=== PATIENT | female | born 1960 | race Hispanic/Latino ===

== ENCOUNTER → 2019-02-06 | Outpatient (CLI) | payer BC ==
[~2019-02-06] MED LIST: IOPAMIDOL 370 MG/ML 200 ML INFUS..BTL INJ ONE; LOTRIL; SODIUM CHLORIDE 0.9% 100 ML 100 ML ONE; [UNRECOGNIZED DRUG - OTHER]
[2019-02-06 17:38] LABS: BLOOD UREA NITROGEN 18 mg/dL (7-26); BUN/CREATININE RATIO 20 (6-25); CREATININE, SERUM 0.88 mg/dL (0.57-1.11); EST GLOMERULAR FILTRATION RATE > 60 ML/MIN (60-)
--- NOTE | 2019-02-06 18:49 | Diagnostic Imaging Report ---
History:Cerebral aneurysm, Comparison studies:None Technique: Axial images were obtained from the skull base to the vertex. 3-D reconstructions and maximum intensity projection reformats were performed. Coronal and sagittal images reconstructed from the axial data. Intravenous contrast: 100 cc of Omnipaque 300. Dose modulation, iterative reconstruction, and/or weight based adjustment of the mA/kV was utilized to reduce the radiation dose to as low as reasonably achievable. Findings: Right internal carotid artery: Patent. No abnormalities. Left internal carotid artery: Patent. No abnormalities. Right vertebral artery: Patent. No abnormalities. Left vertebral artery: Patent. No abnormalities. Basilar artery: Patent. No abnormalities. Posterior cerebral arteries: Patent. No abnormalities. origin of the bilateral bioinformaticist. Anatomical variants: Acom: Patent . Pcoms: Patent. Vertebral arteries: Dominant left . IMPRESSION: 1. No intracranial vascular abnormality Signed by: DR José Miguel Connors M.D. on 02/06/2019 6:46 PM
== END ==
LOC: CT 16:55
PROVIDERS: ATTEND Internal Medicine Cardiovascular Disease
DX: I67.1 Cerebral aneurysm, nonruptured (principal)
CPT/HCPCS: 36415; 70496; 82565; 84520; Q9967

== ENCOUNTER → 2022-03-08 | Day surgery (SDC) | payer BC ==
[2022-03-04 10:03] LABS: BASOPHILS % 0.9 % (0.0-1.0); EOSINOPHILS # (AUTO) 0.1 (0.0-0.4); EOSINOPHILS % 1.8 % (0.0-6.0); HEMATOCRIT 43.2 % (34.2-44.1); HEMOGLOBIN 14.4 g/dL (12.0-16.0); LYMPHOCYTES # (AUTO) 1.1 (1.0-3.2); LYMPHOCYTES % 23.9 % (18.0-39.1); MEAN CORPUSCULAR HEMOGLOBIN 31.9 pg (28-32); MEAN CORPUSCULAR HGB CONC 33.3 g/dL (31-35); MEAN CORPUSCULAR VOLUME 95.8 fL (81-99); MONOCYTES # (AUTO) 0.4 (0.2-0.8); MONOCYTES % 9.3 % (4.4-11.3); NEUTROPHILS # (AUTO) 2.8 (2.1-6.9); NEUTROPHILS % 63.9 % (38.7-80.0); PLATELET COUNT 237 x10e3/uL (140-360); RED BLOOD COUNT 4.51 x10e6/uL (3.6-5.1); RED CELL DISTRIBUTION WIDTH 11.8 % (11.7-14.4)
[2022-03-04 10:21] LABS: ANION GAP 12.3 mmol/L (8-16); CALCIUM 8.7 mg/dL (8.4-10.2); CREATININE, SERUM 0.93 mg/dL (0.57-1.11); POTASSIUM 4.3 mmol/L (3.5-5.1)
[~2022-03-08] MED LIST changes: +ACETAMINOPHEN 1000 MG/100 ML IV ONE; +AMITRIPTYLINE H25 MG PO; +BETAMETHASONE DISODIUM PHOS 6 MG/ML VIAL ONE; +BUPIVACAINE 0.25% 30ML SDV ONE; +DEXAMETHASONE SOD PHOS INJ 4 MG/ML SDV ONE; +EPHEDRINE SULFATE INJ 50 MG/ML VIAL ONE; +FENTANYL CITRATE/PF 100MCG/2 ML INJ ONE; +HYDROCODONE/APAP 5MG-325MG TAB ONE; -IOPAMIDOL 370 MG/ML 200 ML INFUS..BTL INJ ONE; +KETOROLAC TROMETHAMINE 30 MG/ML VIAL ONE; +LIDOCAINE HCL 1% LOCAL INJ 20 ML VIAL ONE; +LIDOCAINE HCL 2% LOCAL INJ 5 ML SDV VIAL INJ ONE; +LOTREL 5-20 MG1 EACH PO; +MIDAZOLAM HCL 2 MG/2 ML VIAL ONE; +ONDANSETRON HCL INJ 2MG/ML 2ML 2 MG/ML VIAL ONE; +POVIDONE IODINE 0.05% 0.05 % ML PO ONE; +PROPOFOL IV EMULSION 10 MG/ML 20 ML VIAL ONE; +SEVOFLURANE INHAL SOLN 250 ML PEN BTL ONE; -SODIUM CHLORIDE 0.9% 100 ML 100 ML ONE
[2022-03-08 10:15] VITALS: BP 104/62
== END | disposition home or self-care (01) ==
LOC: OR 08:10
PROVIDERS: ATTEND Podiatrist Foot Surgery
DX: S93.322A Subluxation of tarsometatarsal joint of left foot, initial encounter (principal); M20.12 Hallux valgus (acquired), left foot; S93.115A Dislocation of interphalangeal joint of left lesser toe(s), initial encounter; M21.622 Bunionette of left foot; M20.42 Other hammer toe(s) (acquired), left foot; M60.20 Foreign body granuloma of soft tissue, not elsewhere classified, unspecified site; I10 Essential (primary) hypertension; F41.9 Anxiety disorder, unspecified; Z01.818 Encounter for other preprocedural examination; Z01.812 Encounter for preprocedural laboratory examination; Z20.822 Contact with and (suspected) exposure to COVID-19; Z79.899 Other long term (current) drug therapy
CPT/HCPCS: 0223U; 28110; 28285 ×3; 28297; 28645; 36415; 71046; 73620; 80048; 85025; C1713 ×2; J0131; J0690; J0720; J1100; J1885; J2001 ×2; J2250; J2405; J2704; J3010